=== PATIENT | female | born 1965 | race Caucasian/White ===

== ENCOUNTER 2018-06-01 13:45 | Emergency (ER) | payer BC ==
[2018-06-01 14:48] LABS: ABS Basophils 0.1 10^3/ul (0-0.2); ABS Eosinophils 0.1 10^3/ul (0-0.6); ABS Lymphocytes 2.5 10^3/ul (1.0-4.8); ABS Monocytes 0.5 10^3/ul (0-0.8); ABS Neutrophils 4.9 10^3/ul (1.5-7.7); ABS Nucleated RBC 0 10^3/ul; Eosinophil % 1.6 % (0-6); Hematocrit 41 % (35-47); Lymphocyte % 31.2 % (25-47); Mean Corpuscular HGB Conc 34 g/dl (31-36); Mean Corpuscular Hemoglobin 30 pg (27-31); Mean Corpuscular Volume 88 fL (80-97); Mean Platelet Volume 8.7 um3 (7.4-10.4); Nucleated Red Blood Cells % 0.1; Platelet Count 222 10^3/ul (150-450); Red Blood Count 4.71 10^6/ul (4.00-5.40); Red Cell Distribution Width 14 % (10.5-15); White Blood Count 8.1 10^3/ul (3.5-10.8)
[2018-06-01 14:59] LABS: INR 0.97 (0.77-1.02)
--- NOTE | 2018-06-01 15:13 | RAD ---
Indication: Chest pain. 2 views of the chest including dual energy PA views demonstrate no mediastinal shift. Heart is of normal size and configuration. Lung winston are clear. IMPRESSION: No active cardiopulmonary disease is noted.
[2018-06-01 15:14] LABS: EGFR Non-African American 98.5 (>60)
--- NOTE | 2018-06-01 16:37 | ED ---
HPI Chest Pain - HPI Summary HPI Summary: Patient is a 52-year-old female with a history of hypertension and anxiety presenting to the ED with a 3 week history, worsening over the past 3 days of substernal chest pain which she describes as burning and aching, not worse or better with positioning and not worse or better with food. She states she has been under a lot of stress at work. She denies any fevers, sweats, chills. Denies any radiation of pain. She does however, endorse some numbness and tingling which has also been intermittent to the left arm. She states this was worse today while at work. She had moments where she was unable to focus. She states she feels better now that she has arrived to the ED. Denies any nausea, vomiting, constipation, diarrhea, flank pain, weakness in the bilateral upper or lower extremities. Symptoms are not better or worse with exertion. History of GERD, but states this also feels different than her GERD symptoms. She was recently reduced from 40 mg of omeprazole to 20 mg omeprazole. - History of Current Complaint Chief Complaint: EDChestPainROMI Time Seen by Provider: 06/01/18 13:52 Hx Obtained From: Patient Onset/Duration: Started Hours Ago Timing: Constant Initial Severity: Moderate Current Severity: Moderate Pain Intensity: 2 Pain Scale Used: 0-10 Numeric Chest Pain Location: Mid Sternal Chest Pain Radiates: No Character: Heaviness, Pounding Aggravating Factor(s): Nothing Alleviating Factor(s): Nothing Associated Signs and Symptoms: Positive: Anxiety, Recent Stress, Numbness, Tingling. Negative: Vision Changes, Headaches, Weakness, Dizziness, Lightheadedness, Diaphoresis, Nausea, Cough, Vomiting, URI, Hoarseness - Risk Factors Pulmonary Embolism Risk Factors: Negative AMI/ACS Risk Factors: Sedentary Lifestyle, Diabetes, Obesity - Allergy/Home Medications Allergies/Adverse Reactions: Allergies Allergy/AdvReac Type Severity Reaction Status Date / Time ibuprofen Allergy Hives Verified 06/01/18 13:56 iodine Allergy Hives Verified 06/01/18 13:56 latex Allergy Itching Verified 06/01/18 13:56 Sulfa (Sulfonamide Allergy Rash Verified 06/01/18 13:56 Antibiotics) PMH/Surg Hx/FS Hx/Imm Hx Previously Healthy: Yes Endocrine/Hematology History: Reports: Hx Diabetes, Hx Thyroid Disease Cardiovascular History: Reports: Hx Hypertension Denies: Hx Pacemaker/ICD Musculoskeletal History: Reports: Other Musculoskeletal History - RIGTH SIDED CERVICAL AND SHOULDER PAIN Sensory History: Denies: Hx Hearing Aid Neurological History: Reports: Other Neuro Impairments/Disorders - fibromyalgia Psychiatric History: Denies: Hx Panic Disorder - Cancer History Hx Chemotherapy: No Hx Radiation Therapy: No - Surgical History Surgery Procedure, Year, and Place: TUBES IN EARS CHILD. GALLBLADDER. PARTIAL HYSTERECTOMY. TONSILS. 3 C-SECTIONS. LAPARSCOPIC PROCEDURE - Immunization History Hx Pertussis Vaccination: No Immunizations Up to Date: Yes Infectious Disease History: No Infectious Disease History: Denies: Traveled Outside the [place] in Last 30 Days - Family History Known Family History: Positive: Hypertension Negative: Respiratory Disease, Seizure Disorder - Social History Occupation: Employed Full-time Lives: With Family Alcohol Use: Occasionally Substance Use Type: Reports: None Hx Tobacco Use: Yes Smoking Status (MU): Former Smoker Review of Systems Constitutional: Negative Negative: Fever, Chills, Fatigue, Skin Diaphoresis Negative: Photophobia, Blurred Vision, Diplopia, Drainage Positive: Chest Pain. Negative: Palpitations Negative: Shortness Of Breath, Cough Negative: Abdominal Pain, Vomiting, Diarrhea, Nausea Genitourinary: Negative Positive: no symptoms reported Negative: Arthralgia, Myalgia Negative: Rash, Bruising Positive: Numbness. Negative: Headache, Weakness, Paresthesia Positive: Anxious All Other Systems Reviewed And Are Negative: Yes Physical Exam Triage Information Reviewed: Yes Vital Signs On Initial Exam: Initial Vitals Temp Pulse Resp BP Pulse Ox 98.5 F 84 18 128/73 95 06/01/18 13:48 06/01/18 13:48 06/01/18 13:48 06/01/18 13:48 06/01/18 13:48 Vital Signs Reviewed: Yes Appearance: Positive: Well-Appearing, Well-Nourished Skin: Positive: Warm, Skin Color Reflects Adequate Perfusion Head/Face: Positive: Normal Head/Face Inspection Eyes: Positive: EOMI, REA, Conjunctiva Clear Neck: Positive: Supple, No Lymphadenopathy Respiratory/Lung Sounds: Positive: Clear to Auscultation, Breath Sounds Present Cardiovascular: Positive: Normal, RRR, Pulses are Symmetrical in both Upper and Lower Extremities Musculoskeletal: Positive: Normal, Strength/ROM Intact Neurological: Positive: Sensory/Motor Intact, Alert, Oriented to Person Place, Time, Speech Normal Psychiatric: Positive: Anxious - tearful on exam AVPU Assessment: Alert Diagnostics - Vital Signs Vital Signs Temp Pulse Resp BP Pulse Ox 06/01/18 13:48 98.5 F 84 18 128/73 95 - Laboratory Lab Results: Lab Results 06/01/18 06/01/18 06/01/18 Range/Units 14:37 14:37 14:37 WBC 8.1 (3.5-10.8) 10^3/ul RBC 4.71 (4.00-5.40) 10^6/ul Hgb 14.0 (12.0-16.0) g/dl Hct 41 (35-47) % MCV 88 (80-97) fL MCH 30 (27-31) pg MCHC 34 (31-36) g/dl RDW 14 (10.5-15) % Plt Count 222 (150-450) 10^3/ul MPV 8.7 (7.4-10.4) um3 Neut % (Auto) 60.4 (38-83) % Lymph % (Auto) 31.2 (25-47) % Elliott % (Auto) 6.1 (0-7) % Eos % (Auto) 1.6 (0-6) % Baso % (Auto) 0.7 (0-2) % Absolute Neuts (auto) 4.9 (1.5-7.7) 10^3/ul Absolute Lymphs (auto) 2.5 (1.0-4.8) 10^3/ul Absolute Monos (auto) 0.5 (0-0.8) 10^3/ul Absolute Eos (auto) 0.1 (0-0.6) 10^3/ul Absolute Basos (auto) 0.1 (0-0.2) 10^3/ul Absolute Nucleated RBC 0 10^3/ul Nucleated RBC % 0.1 INR (Anticoag Therapy) 0.97 (0.77-1.02) Sodium 139 (135-145) mmol/L Potassium 3.1 L (3.5-5.0) mmol/L Chloride 102 (101-111) mmol/L Carbon Dioxide 27 (22-32) mmol/L Anion Gap 10 (2-11) mmol/L BUN 15 (6-24) mg/dL Creatinine 0.63 (0.51-0.95) mg/dL Est GFR ( Amer) 119.2 (>60) Est GFR (Non-Af Amer) 98.5 (>60) BUN/Creatinine Ratio 23.8 H (8-20) Glucose 120 H (70-100) mg/dL Lactic Acid (0.5-2.0) mmol/L Calcium 9.6 (8.6-10.3) mg/dL Magnesium 1.7 L (1.9-2.7) mg/dL Total Bilirubin 0.40 (0.2-1.0) mg/dL AST 24 (13-39) U/L ALT 28 (7-52) U/L Alkaline Phosphatase 52 (34-104) U/L Total Creatine Kinase 229 H (10-223) U/L CK-MB (CK-2) 3.1 (0.6-6.3) ng/mL Troponin I 0.00 (<0.04) ng/mL Total Protein 7.6 (6.4-8.9) g/dL Albumin 4.4 (3.2-5.2) g/dL Globulin 3.2 (2-4) g/dL Albumin/Globulin Ratio 1.4 (1-3) 06/01/18 Range/Units 14:37 WBC (3.5-10.8) 10^3/ul RBC (4.00-5.40) 10^6/ul Hgb (12.0-16.0) g/dl Hct (35-47) % MCV (80-97) fL MCH (27-31) pg MCHC (31-36) g/dl RDW (10.5-15) % Plt Count (150-450) 10^3/ul MPV (7.4-10.4) um3 Neut % (Auto) (38-83) % Lymph % (Auto) (25-47) % Elliott % (Auto) (0-7) % Eos % (Auto) (0-6) % Baso % (Auto) (0-2) % Absolute Neuts (auto) (1.5-7.7) 10^3/ul Absolute Lymphs (auto) (1.0-4.8) 10^3/ul Absolute Monos (auto) (0-0.8) 10^3/ul Absolute Eos (auto) (0-0.6) 10^3/ul Absolute Basos (auto) (0-0.2) 10^3/ul Absolute Nucleated RBC 10^3/ul Nucleated RBC % INR (Anticoag Therapy) (0.77-1.02) Sodium (135-145) mmol/L Potassium (3.5-5.0) mmol/L Chloride (101-111) mmol/L Carbon Dioxide (22-32) mmol/L Anion Gap (2-11) mmol/L BUN (6-24) mg/dL Creatinine (0.51-0.95) mg/dL Est GFR ( Amer) (>60) Est GFR (Non-Af Amer) (>60) BUN/Creatinine Ratio (8-20) Glucose (70-100) mg/dL Lactic Acid 1.0 (0.5-2.0) mmol/L Calcium (8.6-10.3) mg/dL Magnesium (1.9-2.7) mg/dL Total Bilirubin (0.2-1.0) mg/dL AST (13-39) U/L ALT (7-52) U/L Alkaline Phosphatase (34-104) U/L Total Creatine Kinase (10-223) U/L CK-MB (CK-2) (0.6-6.3) ng/mL Troponin I (<0.04) ng/mL Total Protein (6.4-8.9) g/dL Albumin (3.2-5.2) g/dL Globulin (2-4) g/dL Albumin/Globulin Ratio (1-3) Result Diagrams: 06/01/18 14:37 06/01/18 14:37 Lab Statement: Any lab studies that have been ordered have been reviewed, and results considered in the medical decision making process. Chest Pain Course/Dx - Course Course Of Treatment: On arrival to the ED, the patient is declining a CT of the brain. She states she does not have a headache, denies any visual changes or disturbances and does not feel her left arm tingling is related to anything neurological. She feels the tingling is due to some chest pressure which she has been having over the past few weeks, worsening over the past 3 days. No cardiac history other than some hypertension which she takes medications and this is very well controlled. She also has a history of diabetes which is controlled with medications. History of anxiety and states this feels somewhat similar. She states she's been under a lot of stress recently at work. She states she called the ambulance when she was having the chest pain, was given nitroglycerin and aspirin in the ambulance but states this did not improve her symptoms she continues to have discomfort. Chest x-ray obtained and shows no acute cardiopulmonary findings. Troponin is 0.00. All of the labs are WNL. On physical exam, chest pain is reproducible throughout the bilateral chest wall. Discussed with patient the likely causes of her symptoms and have encouraged her to follow up with her PCP on Friday as scheduled. Likely this episode secondary to anxiety, but she will have a further workup if her PCP deems it appropriate. - Chest Pain Differential Diagnosis/HQI/PQRI: Acute IA, ACS, Chest Wall, Other: - anxiety - Diagnoses Provider Diagnoses: Chest pain Discharge - Sign-Out/Discharge Documenting (check all that apply): Patient Departure - Discharge Plan Condition: Stable Disposition: HOME Forms: *Work Release Referrals: Alla Villareal MD [Primary Care Provider] - Additional Instructions: Please follow up with your PCP as scheduled Take time off from work Tylenol for any discomfort Moist heat pads to the area may decrease discomfort - Billing Disposition and Condition Condition: STABLE Disposition: Home
[2018-06-01 16:47] VITALS: BP 142/88
== END 2018-06-01 16:46 | disposition home or self-care (01) ==
LOC: ED 13:45
DX: R07.9 Chest pain, unspecified (principal); Z87.891 Personal history of nicotine dependence; F41.9 Anxiety disorder, unspecified; E11.9 Type 2 diabetes mellitus without complications; I10 Essential (primary) hypertension
CPT/HCPCS: 36415; 71046; 80053; 82550; 82553; 83605; 83735; 84484; 85025; 85610; 93005; 99282